=== PATIENT | male | born 1950 | race Caucasian/White ===

== ENCOUNTER → 2017-08-24 | Outpatient (REF) | payer BC, OTHER ==
[~2017-08-24] MED LIST: ACET65TA OR; ASPI81TA83 OR; CRESTOR PO; LOSARTAN PO; OSTEO BI FLEX PO; PRILOSEC OTC PO
[2017-08-24 13:50] LABS: IMMUNOGLOBULIN A 70.3 MG/DL (70-400); IMMUNOGLOBULIN G 1230 MG/DL (681-1648); IMMUNOGLOBULIN M 230 MG/DL (40-230)
[2017-08-24 14:54] LABS: TOTAL PROTEIN 7.3 GM/DL (6.4-8.2)
[2017-08-25 12:50] LABS: ALBUMIN 4.46 GM/DL (3.29-5.55); ALBUMIN % 61.1 % (55.8-66.1); GAMMA GLOBULIN % 15.7 % (11.1-18.8)
== END ==
LOC: M LAB REF 13:03
PROVIDERS: ATTEND Internal Medicine
DX: D47.2 Monoclonal gammopathy (principal); E78.5 Hyperlipidemia, unspecified

== ENCOUNTER → 2018-08-10 | Outpatient (CLI) | payer BC ==
[2018-08-10 12:24] LABS: BASO % 0.5 % (0.0-1.0); EOS % 0.8 % (0.0-3.0); HEMATOCRIT 50.8 % (42.0-52.0); HEMOGLOBIN 17.4 g/dl (13.5-17.5); IMMATURE GRANULOCYTE % 0.3 % (0-3.0); LYMPH # 1.1 10^3/uL (1.5-4.5); LYMPH % 27.8 % (24.0-44.0); MEAN CORPUSCULAR HEMOGLOBIN 29.7 pg (27.0-33.0); MEAN CORPUSCULAR HGB CONC 34.3 g/dl (32.0-36.5); MEAN CORPUSCULAR VOLUME 86.7 fl (80.0-96.0); MONO # 0.3 10^3/uL (0.0-0.8); MONO % 7.8 % (0.0-5.0); NEUTROPHILS # 2.5 10^3/uL (1.8-7.7); NEUTROPHILS % 62.8 % (36.0-66.0); PLATELET COUNT, AUTOMATED 229 10^3/uL (150-450); RED BLOOD COUNT 5.86 10^6/uL (4.30-6.10); RED CELL DISTRIBUTION WIDTH 12.6 % (11.5-14.5)
[2018-08-10 13:45] LABS: ANION GAP 8 MEQ/L (8-16); BLOOD UREA NITROGEN 15 MG/DL (7-18); CALCIUM LEVEL 9.2 MG/DL (8.8-10.2); CARBON DIOXIDE LEVEL 26 MEQ/L (21-32); CHLORIDE LEVEL 105 MEQ/L (98-107); CREATININE FOR GFR 1.13 MG/DL (0.70-1.30); GLOMERULAR FILTRATION RATE > 60.0 (>49); GLUCOSE, FASTING 122 MG/DL (70-100); POTASSIUM SERUM 4.1 MEQ/L (3.5-5.1); SODIUM LEVEL 139 MEQ/L (136-145)
== END ==
LOC: M LAB 11:45
DX: Z01.810 Encounter for preprocedural cardiovascular examination (principal)
CPT/HCPCS: 80048

== ENCOUNTER → 2018-08-28 | Outpatient (REF) | payer BC ==
[2018-08-28 14:43] LABS: IMMUNOGLOBULIN G 1280 MG/DL (681-1648); IMMUNOGLOBULIN M 62 MG/DL (40-230); TOTAL PROTEIN 7.3 GM/DL (6.4-8.2)
[2018-08-29 14:11] LABS: ALBUMIN 4.41 GM/DL (3.29-5.55); ALBUMIN % 60.4 % (55.8-66.1); ALPHA-1-GLOBULIN % 3.6 % (2.9-4.9); ALPHA-1-GLOBULINS 0.26 GM/DL (0.17-0.41); ALPHA-2-GLOBULINS 0.77 GM/DL (0.42-0.99); ALPHA-2-GLOBULINS % 10.5 % (7.1-11.8); BETA-1-GLOBULINS 0.37 GM/DL (0.28-0.60); BETA-1-GLOBULINS % 5.1 % (4.7-7.2); BETA-2-GLOBULINS 0.31 GM/DL (0.19-0.55); BETA-2-GLOBULINS % 4.2 % (3.2-6.5); GAMMA GLOBULIN % 16.2 % (11.1-18.8)
[2018-08-29 14:12] LABS: GAMMA GLOBULINS 1.18 GM/DL (0.65-1.58)
[2018-08-29 14:20] LABS: IMMUNOTYPING SERUM IGG ABNORMAL (NORMAL); IMMUNOTYPING SERUM KAPPA ABNORMAL (NORMAL)
== END ==
LOC: M LAB REF 12:46
DX: D47.2 Monoclonal gammopathy (principal); E88.81 Metabolic syndrome and other insulin resistance
CPT/HCPCS: 84165

== ENCOUNTER 2018-09-01 08:24 | Outpatient (RCR) | payer BC | END 2018-09-20 | LOC: M CR 08:24 | DX: Z98.61 Coronary angioplasty status (principal) | CPT/HCPCS: 93798 ==

== ENCOUNTER → 2019-07-24 | Outpatient (REF) | payer BC ==
[~2019-07-24] MED LIST changes: +AMLO5TAB6 PO; +ASPI81TA85 PO; +ATOR40TA75 PO; +MULTTAB26 PO; +PLAV1TAB2 PO; +PRIL20TA2 PO
[2019-07-24 18:02] LABS: IMMUNOGLOBULIN A 63.6 MG/DL (70-400); IMMUNOGLOBULIN G 1230 MG/DL (681-1648); IMMUNOGLOBULIN M 55.4 MG/DL (40-230); TOTAL PROTEIN 6.7 GM/DL (6.4-8.2)
[2019-07-25 13:25] LABS: ALBUMIN 4.05 GM/DL (3.29-5.55); ALBUMIN % 60.5 % (55.8-66.1); ALPHA-1-GLOBULIN % 3.4 % (2.9-4.9); ALPHA-1-GLOBULINS 0.23 GM/DL (0.17-0.41); ALPHA-2-GLOBULINS % 10.5 % (7.1-11.8); BETA-1-GLOBULINS 0.34 GM/DL (0.28-0.60); BETA-2-GLOBULINS 0.28 GM/DL (0.19-0.55); BETA-2-GLOBULINS % 4.2 % (3.2-6.5); GAMMA GLOBULIN % 16.4 % (11.1-18.8)
[2019-07-25 13:37] LABS: IMMUNOTYPING SERUM IGG ABNORMAL (NORMAL); IMMUNOTYPING SERUM KAPPA ABNORMAL (NORMAL)
== END ==
LOC: M LAB REF 17:06
PROVIDERS: ATTEND Internal Medicine
DX: D47.2 Monoclonal gammopathy (principal)

== ENCOUNTER 2019-10-16 10:24 | Day surgery (SDC) | payer BC ==
[~2019-10-16] VITALS: Ht 175.3 cm; Wt 80.2 kg
[~2019-10-16 10:24] MED LIST changes: +LOSA100T50 PO; +NS 1,000 ML IV ONE
[2019-10-16] MEDS ORDERED: LIDOCAINE 2% INJ 100 MG/5 ML SDV (FOR ANES.) As Ordered ONE (11:50)
[2019-10-16] MEDS ORDERED: PROPOFOL 500 MG/50 ML VIAL As Ordered ONE (11:50)
--- NOTE | 2019-10-16 12:09 | ROOR ---
Patient Name: Dell Jauregui Procedure Date: 10/16/2019 11:40 AM Date of : 1950 Age: 69 Room: [facility] Gender: Male Note Status: Finalized Procedure: Total Colonoscopy to Cecum + Biopsy Polypectomy Indications: Screening for colorectal malignant neoplasm Providers: Omid Ayala MD Referring MD: YOBANI KELLY JR, MD Requesting Provider: Medicines: Monitored Anesthesia Care Complications: No immediate complications. Procedure: Pre-Anesthesia Assessment: - The heart rate, respiratory rate, oxygen saturations, blood pressure, adequacy of pulmonary ventilation, and response to care were monitored throughout the procedure. The Colonoscope was introduced through the anus and advanced to the cecum, identified by appendiceal orifice and ileocecal valve. The colonoscopy was performed without difficulty. The patient tolerated the procedure well. The quality of the bowel preparation was excellent. Findings: The perianal and digital rectal examinations were normal. Non-bleeding internal hemorrhoids were found during retroflexion. The hemorrhoids were small and Grade I (internal hemorrhoids that do not prolapse). Multiple small and large-mouthed diverticula were found in the recto-sigmoid colon, sigmoid colon and descending colon. A small polyp was found in the rectum. The polyp was sessile. The polyp was removed with a jumbo cold forceps. Resection and retrieval were complete. The exam was otherwise without abnormality on direct and retroflexion views. Impression: - Non-bleeding internal hemorrhoids. - Diverticulosis in the recto-sigmoid colon, in the sigmoid colon and in the descending colon. - One small polyp in the rectum, removed with a jumbo cold forceps. Resected and retrieved. - The examination was otherwise normal on direct and retroflexion views. - The exam was otherwise normal to the cecum. Recommendation: - Patient has a contact number available for emergencies. The signs and symptoms of potential delayed complications were discussed with the patient. Return to normal activities tomorrow. Written discharge instructions were provided to the patient. - High fiber diet. - Discharge patient to home. - Continue present medications. - Await pathology results. - Telephone GI clinic for pathology results in 1 week. - Repeat colonoscopy in 10 years for screening purposes. - Return to referring physician. - The findings and recommendations were discussed with the patient's family. Omid Ayala MD Omid Ayala MD 10/16/2019 12:08:43 PM Electronically signed by Omid Ayala MD Number of Addenda: 0 Note Initiated On: 10/16/2019 11:40 AM Estimated Blood Loss: Estimated blood loss: none.
[2019-10-16 12:37] VITALS: BP 111/60
[2019-10-17] MEDS ORDERED: LEVA750T7 PO (00:32)
== END 2019-10-16 12:39 | disposition home or self-care (01) ==
LOC: M OPP 10:24
PROVIDERS: ATTEND Internal Medicine Gastroenterology
DX: Z12.11 Encounter for screening for malignant neoplasm of colon (principal); K64.0 First degree hemorrhoids; K62.1 Rectal polyp; K57.30 Diverticulosis of large intestine without perforation or abscess without bleeding; Z79.899 Other long term (current) drug therapy; Z95.5 Presence of coronary angioplasty implant and graft

== ENCOUNTER 2019-10-16 20:29 | Emergency (ER) | payer BC ==
[~2019-10-16] VITALS: Ht 175.3 cm; Wt 79.5 kg
[~2019-10-16 20:29] MED LIST changes: -NS 1,000 ML IV ONE
[2019-10-16] MEDS ORDERED: NS 1,000 ML IV ONE (21:00)
[2019-10-16 21:51] LABS: BASO % 0.3 % (0.0-1.0); HEMATOCRIT 47.5 % (42.0-52.0); HEMOGLOBIN 16.2 g/dl (13.5-17.5); LYMPH # 0.4 10^3/uL (1.5-5.0); LYMPH % 3.4 % (24.0-44.0); MEAN CORPUSCULAR HGB CONC 34.1 g/dl (32.0-36.5); MONO # 0.6 10^3/uL (0.0-0.8); MONO % 5.3 % (0.0-5.0); NEUTROPHILS # 9.8 10^3/uL (1.5-8.5); NEUTROPHILS % 90.8 % (36.0-66.0); PLATELET COUNT, AUTOMATED 187 10^3/uL (150-450); WHITE BLOOD COUNT 10.8 10^3/uL (4.0-10.0)
[2019-10-16] MEDS ORDERED: ISOVUE-370 76% 100ML VIAL (Q9967) As Ordered ONE (22:03)
[2019-10-16 22:19] LABS: ALBUMIN 3.9 GM/DL (3.2-5.2); ALT/SGPT 33 U/L (12-78); BILIRUBIN,DIRECT 0.4 MG/DL (0.0-0.2); BILIRUBIN,TOTAL 1.7 MG/DL (0.2-1.0); CK-MB VALUE MASS 1.4 NG/ML (<3.6); CPK CREATINE PHOSPHOKINASE 87 U/L (39-308); LIPASE 91 U/L (73-393); MB/CK RELATIVE INDEX 1.61 (< OR =4); TOTAL PROTEIN 7.1 GM/DL (6.4-8.2); TROPONIN I < 0.02 NG/ML (< 0.10)
--- NOTE | 2019-10-16 23:24 | REPVR ---
PROCEDURE INFORMATION: Exam: CT Abdomen And Pelvis With Contrast Exam date and time: 10/16/2019 10:34 PM Age: 69 years old Clinical history: Abdominal pain; Generalized; Additional info: Chest pain after surgery TECHNIQUE: Imaging protocol: Computed tomography of the abdomen and pelvis with intravenous contrast. Radiation optimization: All CT scans at this facility use at least one of these dose optimization techniques: automated exposure control; mA and/or kV adjustment per patient size (includes targeted exams where dose is matched to clinical indication); or iterative reconstruction. Contrast material: ISOVUE 370; Contrast volume: 100 ml; Contrast route: IV; COMPARISON: No relevant prior studies available. FINDINGS: Lungs: Minimal bibasilar fibro-atelectatic change and minimal infiltrates in the lingula and left lower lobe. Minimal bilateral lower lobe bronchiectasis. Liver: The liver attenuation is 86 Hounsfield units and the spleen is 163 Hounsfield units. Gallbladder and bile ducts: Normal. No calcified stones. No ductal dilation. Pancreas: Normal. No ductal dilation. Spleen: Normal. No splenomegaly. Adrenals: Normal. No mass. Kidneys and ureters: There are bilateral renal cysts measuring up to 11 mm on the right. Stomach and bowel: Minimal sigmoid diverticulosis without diverticulitis. Appendix: A normal appendix is seen. Intraperitoneal space: Unremarkable. No free air. No significant fluid collection. Vasculature: Unremarkable. No abdominal aortic aneurysm. Lymph nodes: Unremarkable. No enlarged lymph nodes. Bladder: Unremarkable as visualized. Reproductive: There is moderate enlargement of the prostate. Bones/joints: Facet arthropathy of the lumbar spine with mild anterolisthesis of L4 relative to L5. Soft tissues: Unremarkable. IMPRESSION: 1. Minimal bibasilar fibro-atelectatic change and minimal infiltrates in the lingula and left lower lobe. 2. Fatty infiltration of the liver. 3. Moderate prostatic enlargement. 4. Minimal sigmoid diverticulosis without diverticulitis. 5. Lumbar facet arthropathy with anterolisthesis of L4-L5 with some degree of spinal stenosis at L4-L5 and to lesser degree L3-L4. Electronically signed by: Ray Bolton On 10/16/2019 23:24:31 PM
--- NOTE | 2019-10-17 00:09 | REPVR ---
PROCEDURE INFORMATION: Exam: CT Angiography Chest With Contrast Exam date and time: 10/16/2019 10:34 PM Age: 69 years old Clinical history: Pain; Chest pressure; Additional info: Chest pain after surgery TECHNIQUE: Imaging protocol: Computed tomographic angiography of the chest with intravenous contrast. 3D rendering: MIP reconstructed images were created and reviewed. Radiation optimization: All CT scans at this facility use at least one of these dose optimization techniques: automated exposure control; mA and/or kV adjustment per patient size (includes targeted exams where dose is matched to clinical indication); or iterative reconstruction. Contrast material: ISOVUE 370; Contrast volume: 100 ml; Contrast route: IV; COMPARISON: No relevant prior studies available. FINDINGS: Pulmonary arteries: The main pulmonary artery measures 20 mm. No pulmonary embolism is identified. Aorta: The ascending thoracic aorta measures 29 mm. No gross or obvious aortic dissection is identified distal to the mid arch. Artifact and image degradation precludes detailed evaluation of the ascending thoracic aorta. Lungs: Minimal bibasilar fibro-atelectatic change with minimal right lower lobe bronchiectasis. Minimal infiltrates in the lingula and left lower lobe. Pleural space: Unremarkable. No pneumothorax. No pleural effusion. Heart: Unremarkable. No cardiomegaly. No pericardial effusion. Lymph nodes: Unremarkable. No enlarged lymph nodes. Bones/joints: Unremarkable. No acute fracture. Soft tissues: Unremarkable. IMPRESSION: 1. Minimal bibasilar fibro-atelectatic change with minimal infiltrates in the lingula and left lower lobe which may reflect pneumonia. 2. Otherwise negative CTA chest. No pulmonary embolism is identified. Electronically signed by: Ray Bolton On 10/17/2019 00:08:58 AM
[2019-10-17] MEDS ORDERED: LevoFLOXacin 750 MG TABLET PO ONE (00:30)
[2019-10-17] MEDS ORDERED: LEVA750T7 PO (00:32)
[2019-10-17 00:43] VITALS: BP 124/69
--- NOTE | 2019-10-17 08:57 | ECGEPIP ---
[facility] - ED Test Date: 2019-10-16 Pat Name: DARLENE MENESES Department: Room: - Gender: Male Spindle Tester: KCJ : 1950 Requested By: STACEY Jackson Order Number: [id number] Reading MD: Peewee Braden Measurements Intervals [place] Rate: 93 P: 58 GA: 202 QRS: 64 QRSD: 106 T: 41 QT: 356 QTc: 445 Interpretive Statements SINUS RHYTHM NSTTW ABNORMALITIES SIMILAR TO 11/08/15 Electronically Signed on 10-17-2019 8:57:20 EST by Peewee Braden
== END 2019-10-17 00:45 | disposition home or self-care (01) ==
LOC: M ED 20:29
DX: J18.9 Pneumonia, unspecified organism (principal); K76.0 Fatty (change of) liver, not elsewhere classified; K57.30 Diverticulosis of large intestine without perforation or abscess without bleeding; M48.061 Spinal stenosis, lumbar region without neurogenic claudication; M43.16 Spondylolisthesis, lumbar region; N40.2 Nodular prostate without lower urinary tract symptoms; I25.10 Atherosclerotic heart disease of native coronary artery without angina pectoris; I10 Essential (primary) hypertension; E78.5 Hyperlipidemia, unspecified; K21.9 Gastro-esophageal reflux disease without esophagitis; Z95.5 Presence of coronary angioplasty implant and graft; Z79.890 Hormone replacement therapy; Z79.82 Long term (current) use of aspirin; Z79.899 Other long term (current) drug therapy
CPT/HCPCS: 71275; 74177; 80047; 80076; 82550; 82553; 83605; 83690; 84484; 85025; 87040; 93005; 93041; 96360; 99285; Q9967

== ENCOUNTER → 2020-07-25 | Outpatient (REF) | payer BC ==
[~2020-07-25] MED LIST changes: +AMLO1TAB24 PO; -AMLO5TAB6 PO; -ASPI81TA85 PO; +ASPI81TA86 PO; +LEVA750T7 PO
[2020-07-25 14:45] LABS: IMMUNOGLOBULIN G 1230 MG/DL (681-1648); IMMUNOGLOBULIN M 45.3 MG/DL (40-230); TOTAL PROTEIN 6.8 GM/DL (6.4-8.2); VITAMIN B12 LEVEL 576 PG/ML
[2020-07-25 14:46] LABS: FOLATE > 24.0 NG/ML
[2020-07-29 12:42] LABS: ALBUMIN 4.18 GM/DL (3.29-5.55); ALBUMIN % 61.5 % (55.8-66.1); ALPHA-1-GLOBULIN % 3.2 % (2.9-4.9); ALPHA-1-GLOBULINS 0.22 GM/DL (0.17-0.41); ALPHA-2-GLOBULINS 0.66 GM/DL (0.42-0.99); ALPHA-2-GLOBULINS % 9.7 % (7.1-11.8); BETA-1-GLOBULINS 0.33 GM/DL (0.28-0.60); BETA-1-GLOBULINS % 4.8 % (4.7-7.2); BETA-2-GLOBULINS 0.27 GM/DL (0.19-0.55); GAMMA GLOBULIN % 16.8 % (11.1-18.8); GAMMA GLOBULINS 1.14 GM/DL (0.65-1.58)
[2020-07-29 12:59] LABS: IMMUNOTYPING SERUM IGG ABNORMAL (NORMAL); IMMUNOTYPING SERUM KAPPA ABNORMAL (NORMAL)
== END ==
LOC: M LAB REF 12:08
PROVIDERS: ATTEND Internal Medicine
DX: D47.2 Monoclonal gammopathy (principal); G60.9 Hereditary and idiopathic neuropathy, unspecified

== ENCOUNTER → 2021-07-28 | Outpatient (REF) | payer BC ==
[2021-07-28 13:02] LABS: IMMUNOGLOBULIN A 58.2 MG/DL (70-400); IMMUNOGLOBULIN G 1260 MG/DL (681-1648); IMMUNOGLOBULIN M 58.8 MG/DL (40-230)
[2021-07-29 12:31] LABS: ALBUMIN 4.28 GM/DL (3.29-5.55); ALBUMIN % 61.1 % (55.8-66.1); ALPHA-1-GLOBULIN % 3.7 % (2.9-4.9); ALPHA-1-GLOBULINS 0.26 GM/DL (0.17-0.41); ALPHA-2-GLOBULINS 0.71 GM/DL (0.42-0.99); ALPHA-2-GLOBULINS % 10.1 % (7.1-11.8); BETA-1-GLOBULINS 0.32 GM/DL (0.28-0.60); BETA-1-GLOBULINS % 4.5 % (4.7-7.2); BETA-2-GLOBULINS 0.27 GM/DL (0.19-0.55); BETA-2-GLOBULINS % 3.9 % (3.2-6.5); GAMMA GLOBULIN % 16.7 % (11.1-18.8); GAMMA GLOBULINS 1.17 GM/DL (0.65-1.58)
[2021-07-29 12:36] LABS: IMMUNOTYPING SERUM IGG ABNORMAL (NORMAL); IMMUNOTYPING SERUM KAPPA ABNORMAL (NORMAL)
[2021-07-30 09:09] LABS: LDL DIRECT 32 mg/dL (0-99)
== END ==
LOC: M LAB REF 11:20
PROVIDERS: ATTEND Internal Medicine
DX: D47.2 Monoclonal gammopathy (principal)

== ENCOUNTER → 2021-08-12 | Outpatient (CLI) | payer BC ==
--- NOTE | 2021-08-12 08:30 | REP ---
INDICATION: ELEVATED LFT'S. COMPARISON: None. TECHNIQUE: Standard ultrasound images of the right upper quadrant of the abdomen were obtained. FINDINGS: The liver is normal in size, measuring 14.9 cm in vertical dimension in the midclavicular line and has a normal homogeneous parenchymal echogenicity. There are multiple 3 mm gallbladder polyps identified. The gallbladder wall measures 2 mm in thickness. Common bile duct measures 3 mm in diameter. The right kidney measures 9.3 x 5.7 x 5.1 cm. There is a peripelvic cyst in the upper pole the right kidney measuring 11 mm in diameter. There is a peripelvic cyst in the interpolar region of the right kidney measuring 9 mm in diameter. There is a 4 mm stone in an interpolar calyx of the right kidney. The renal cortical echogenicity is normal. There is no hydronephrosis. The pancreas is largely obscured by overlying bowel gas. There is fluid noted in Schuster's space. IMPRESSION: 1. Multiple gallbladder polyps. 2. Benign peripelvic cysts, right kidney. 3. Nonobstructing stone, right kidney. 4. Fluid in Schuster's space of indeterminate etiology. <Electronically signed by Kg Hopper > 08/12/21 [id number]
== END ==
LOC: M RAD 07:47
PROVIDERS: ATTEND Internal Medicine
DX: R94.5 Abnormal results of liver function studies (principal); N20.0 Calculus of kidney; K82.4 Cholesterolosis of gallbladder; N28.1 Cyst of kidney, acquired

== ENCOUNTER → 2021-08-27 | Outpatient (REF) | payer BC | LOC: M LAB REF 12:40 | PROVIDERS: ATTEND Internal Medicine | DX: R94.5 Abnormal results of liver function studies (principal) ==

== ENCOUNTER → 2022-07-29 | Outpatient (REF) | payer BC ==
[~2022-07-29] MED LIST changes: +LOSA100T45 PO; -LOSA100T50 PO
[2022-07-29 14:00] LABS: TOTAL PROTEIN 7.2 GM/DL (6.4-8.2)
[2022-07-30 09:27] LABS: ALBUMIN 4.25 GM/DL (3.29-5.55); ALPHA-1-GLOBULIN % 3.5 % (2.9-4.9); ALPHA-1-GLOBULINS 0.25 GM/DL (0.17-0.41); ALPHA-2-GLOBULINS 0.76 GM/DL (0.42-0.99); ALPHA-2-GLOBULINS % 10.6 % (7.1-11.8); BETA-1-GLOBULINS 0.35 GM/DL (0.28-0.60); BETA-1-GLOBULINS % 4.9 % (4.7-7.2); BETA-2-GLOBULINS 0.29 GM/DL (0.19-0.55)
[2022-07-30 09:37] LABS: IMMUNOTYPING SERUM IGG ABNORMAL (NORMAL); IMMUNOTYPING SERUM KAPPA ABNORMAL (NORMAL)
[2022-07-30 10:14] LABS: IMMUNOGLOBULIN A 65.1 MG/DL (70-400); IMMUNOGLOBULIN G 1330 MG/DL (681-1648); IMMUNOGLOBULIN M 41.7 MG/DL (40-230)
== END ==
LOC: M LAB REF 12:02
PROVIDERS: ATTEND Internal Medicine
DX: R94.5 Abnormal results of liver function studies (principal)

== ENCOUNTER → 2022-09-03 | Outpatient (CLI) | payer BC | LOC: M RAD 08:32 | PROVIDERS: ATTEND Internal Medicine | DX: K82.9 Disease of gallbladder, unspecified (principal) ==

== ENCOUNTER → 2023-07-29 | Outpatient (REF) | payer BC ==
[~2023-07-29] MED LIST changes: +CLOP75TA99 PO; -LOSA100T45 PO; +LOSA100T46 PO; -PLAV1TAB2 PO
[2023-07-29 12:45] LABS: IMMUNOGLOBULIN A 59.6 MG/DL (40-350); IMMUNOGLOBULIN M 49.6 MG/DL (50-300)
== END ==
LOC: M LAB REF 11:21
PROVIDERS: ATTEND Internal Medicine
DX: R94.5 Abnormal results of liver function studies (principal)

== ENCOUNTER → 2024-08-02 | Outpatient (REF) | payer BC ==
[2024-08-02 14:40] LABS: IMMUNOGLOBULIN A 60.6 MG/DL (40-350); IMMUNOGLOBULIN G 1163 MG/DL (650-1600)
[2024-08-04 05:02] LABS: PROTEIN, TOTAL SO 7.3 g/dL (6.1-8.1)
[2024-08-05 04:21] LABS: LDL DIRECT 37 mg/dL (<100)
[2024-08-07 06:37] LABS: ALBUMIN SO 4.5 g/dL (3.8-4.8); ALPHA 1 GLOBULINS SO 0.2 g/dL (0.2-0.3); ALPHA 2 GLOBULINS SO 0.8 g/dL (0.5-0.9); BETA 2 GLOBULIN SO 0.3 g/dL (0.2-0.5); BETA GLOBULIN SO 0.4 g/dL (0.4-0.6); GAMMA GLOBULINS SO 1.2 g/dL (0.8-1.7); SPEP IFE ABN PROTEIN BAND 1 0.8 g/dL (NONE DETECTED)
== END ==
LOC: M LAB REF 13:01
PROVIDERS: ATTEND Internal Medicine
DX: R94.5 Abnormal results of liver function studies (principal)

== ENCOUNTER → 2025-08-05 | Outpatient (REF) | payer BC ==
[2025-08-06 16:22] LABS: PROTEIN, TOTAL SO 7.2 g/dL (6.1-8.1)
== END ==
LOC: M LAB REF 11:51
PROVIDERS: ATTEND Internal Medicine
DX: R94.5 Abnormal results of liver function studies (principal)

== ENCOUNTER 2025-10-13 09:15 | Emergency (ER) | payer BC, OTHER ==
[~2025-10-13] VITALS: Ht 175.3 cm; Wt 81.6 kg
[2025-10-13 09:39] LABS: BASO # 0.0 10^3/uL (0.0-0.2); BASO % 0.7 % (0.0-1.0); EOS # 0.1 10^3/uL (0.0-0.5); EOS % 2.5 % (0.0-3.0); LYMPH # 2.0 10^3/uL (1.5-5.0); LYMPH % 35.8 % (24.0-44.0); MONO # 0.6 10^3/uL (0.0-0.8); MONO % 11.1 % (2.0-8.0); NEUTROPHILS # 2.8 10^3/uL (1.5-8.5); NEUTROPHILS % 49.7 % (36.0-66.0); PLATELET COUNT, AUTOMATED 227 10^3/uL (150-450)
[2025-10-13 10:14] LABS: ALT/SGPT 21.0 U/L (7.0-40); AST/SGOT 32.0 U/L (<34); CALCIUM LEVEL 9.1 MG/DL (8.3-10.6); CARBON DIOXIDE LEVEL 24.0 MMOL/L (20-31); CHLORIDE LEVEL 106.0 MMOL/L (98-107); CK-MB VALUE MASS 1.6 NG/ML (<3.6); CPK CREATINE PHOSPHOKINASE 78.0 U/L (46-171); CREATININE FOR GFR 1.15 MG/DL (0.70-1.30); GLOMERULAR FILTRATION RATE 67.2 (>42); MAGNESIUM LEVEL 1.9 MG/DL (1.8-2.4); MB/CK RELATIVE INDEX 2.05 (< OR =4); POTASSIUM SERUM 3.9 MMOL/L (3.5-5.1); SODIUM LEVEL 142.0 MMOL/L (136-145)
[2025-10-13 11:16] LABS: CK-MB VALUE MASS 1.3 NG/ML (<3.6)
[2025-10-13 11:21] LABS: CPK CREATINE PHOSPHOKINASE 75.0 U/L (46-171); MB/CK RELATIVE INDEX 1.73 (< OR =4)
[2025-10-13 12:00] VITALS: BP 132/74
[2025-10-13 12:15] VITALS: TEMP 98.4; O2SAT 95
== END 2025-10-13 12:25 | disposition home or self-care (01) ==
LOC: EDBD 09:15 → M ED 09:15
DX: R55 Syncope and collapse (principal); S16.1XXA Strain of muscle, fascia and tendon at neck level, initial encounter; X58.XXXA Exposure to other specified factors, initial encounter; I70.0 Atherosclerosis of aorta; M48.02 Spinal stenosis, cervical region; I44.0 Atrioventricular block, first degree; I10 Essential (primary) hypertension; K21.9 Gastro-esophageal reflux disease without esophagitis; Z79.82 Long term (current) use of aspirin; Z79.899 Other long term (current) drug therapy; Z79.02 Long term (current) use of antithrombotics/antiplatelets; Y92.9 Unspecified place or not applicable; Y93.89 Activity, other specified; Y99.9 Unspecified external cause status